=== PATIENT | male | born 1960 | race Caucasian/White ===

== ENCOUNTER 2021-10-17 12:05 | Day surgery (SDC) | payer OTHER ==
[2021-10-17] MEDS ORDERED: Sensorcaine 0.25% 10 ML IJ ONE (12:06)
[2021-10-17] MEDS ORDERED: DIPRIVAN 200 MG/20 ML IV ONE (14:17)
[2021-10-17] MEDS ORDERED: Lactated Ringers 1,000 ML IV ONE (15:00)
--- NOTE | 2021-10-17 15:01 | XRAY ---
Indication: Left C2-C4 MBB. Intraoperative fluoroscopy provided for 26 seconds. 4 digital spot images submitted for interpretation demonstrates posterior needle tips projecting over the expected left C2-C4 nerve roots. Correlate with intraoperative findings/report.
--- NOTE | 2021-10-17 16:42 | XRAY ---
26 seconds of fluoroscopy was used in surgery for a left C2-C4 MBB.
== END 2021-10-17 14:43 | disposition home or self-care (01) ==
LOC: SDC-PAIN 12:05
PROVIDERS: ATTEND Psychiatry & Neurology Pain Medicine
DX: M47.812 Spondylosis without myelopathy or radiculopathy, cervical region (principal); I10 Essential (primary) hypertension; Z79.899 Other long term (current) drug therapy
CPT/HCPCS: 64490; 64491; 72040; 77002; J2704

== ENCOUNTER 2021-11-21 10:59 | Day surgery (SDC) | payer OTHER ==
[2021-11-21] MEDS ORDERED: LIDOCAINE HCL 2% 100 MG/5 ML IJ ONE (11:00)
[2021-11-21] MEDS ORDERED: DIPRIVAN 200 MG/20 ML IV ONE (13:19)
[2021-11-21] MEDS ORDERED: Lactated Ringers 1,000 ML IV ONE (14:24)
--- NOTE | 2021-11-21 14:58 | XRAY ---
Indication: Right C2-C4 MBB. Intraoperative fluoroscopy provided for 29 seconds. Single lateral digital spot image submitted for interpretation demonstrates posterior needle tips projecting over the presumed right C2-C4 nerve roots. Correlate with intraoperative findings/report.
--- NOTE | 2021-11-21 16:25 | XRAY ---
29 seconds of fluoroscopy was used in surgery for a right C2-C4 MBB.
== END 2021-11-21 13:48 | disposition home or self-care (01) ==
LOC: SDC-PAIN 10:59
PROVIDERS: ATTEND Psychiatry & Neurology Pain Medicine
DX: M47.812 Spondylosis without myelopathy or radiculopathy, cervical region (principal); I10 Essential (primary) hypertension; Z79.899 Other long term (current) drug therapy
CPT/HCPCS: 64490; 64491; 72040; 77002; J2704

== ENCOUNTER 2022-09-19 06:07 | Day surgery (SDC) | payer OTHER ==
--- NOTE | 2022-09-18 12:54 | HP ---
DATE OF SURGERY: 09/19/2022 HISTORY OF PRESENT ILLNESS: The patient is a 61-year-old male who initially presented to the office with complaints of some left groin pain. The patient had a CT scan showing some narrowing and some thickening of the sigmoid colon. The patient had a colonoscopy about two years ago and some polyps. He presents for colonoscopy today. PAST MEDICAL HISTORY: Chronic obstructive pulmonary disease, hypertension, heartburn. PAST SURGICAL HISTORY: Cardiac catheterization. Nasal surgery. ALLERGIES: NONE REPORTED. MEDICATIONS: Aspirin, nebivolol. FAMILY HISTORY: None reported. SOCIAL HISTORY: Former smoker. Denies alcohol. REVIEW OF SYSTEMS: CONSTITUTIONAL: Denies fever or chills. CHEST: Denies shortness of breath. CVS: Denies chest pain. ABDOMEN: Reports left groin pain. PHYSICAL EXAMINATION: GENERAL: No acute distress. CHEST: Nonlabored. No shortness of breath. CVS: Regular rate and rhythm. ABDOMEN: Soft. No identified inguinal hernia on physical exam. IMPRESSION: Abnormal CT scan with sigmoid colon thickening, narrowing and history of colon polyps. PLAN: Colonoscopy with Dr. Guilherme Hanson. As dictated by Xiomara Ramos NP.
[2022-09-19] MEDS ORDERED: Lactated Ringers 1,000 ML IV ONE (06:58)
[2022-09-19] MEDS ORDERED: Lactated Ringers 1,000 ML IV SCH (07:00)
[2022-09-19] MEDS ORDERED: DIPRIVAN 200 MG/20 ML IV ONE (09:18)
[2022-09-19] MEDS ORDERED: Versed 2 MG/2 ML Injection ONE (09:18)
[2022-09-19 09:54] VITALS: O2SAT 94
[2022-09-19 10:02] VITALS: BP 111/74; PULSE 58
--- NOTE | 2022-09-19 10:53 | OP ---
SURGERY DATE/TIME: 09/19/2022 0921 PREOPERATIVE DIAGNOSIS: Thickened colon per CT scan of the sigmoid. POSTOPERATIVE DIAGNOSES: 1) The patient has severe external hemorrhoids. 2) The patient has moderate sigmoid diverticulosis with some narrowing and thickening. PROCEDURE: Colonoscopy complete to cecum. SURGEON: Guilherme Hanson M.D. ANESTHESIA: MAC. COMPLICATIONS: None. CONDITION: Stable. INDICATION: The patient had CT scan findings suggested colonoscopy. There is a thickened sigmoid colon. DESCRIPTION OF PROCEDURE: Taken to endoscopy. Left lateral decubitus position. Anal digital examination satisfactory. Prostate satisfactory. Scope introduced. Scope advanced to the cecum. Base of the cecum, ileocecal valve was normal. Ascending, hepatic, transverse, splenic, descending, sigmoid moderate diverticulosis with some spasm and very slight narrowing and angulation. No polyps noted. Rectum, anus moderate to severe external hemorrhoids. The patient tolerated the procedure satisfactory.
== END 2022-09-19 10:10 | disposition home or self-care (01) ==
LOC: SDC 06:07
PROVIDERS: ATTEND Surgery
DX: K57.30 Diverticulosis of large intestine without perforation or abscess without bleeding (principal); R93.3 Abnormal findings on diagnostic imaging of other parts of digestive tract; K64.4 Residual hemorrhoidal skin tags
CPT/HCPCS: J2250; J2704

== ENCOUNTER 2024-02-02 21:45 | Emergency (ER) | payer MEDICARE ==
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
[2024-02-02 22:07] VITALS: TEMP 98.1
[2024-02-02 22:11] LABS: BASOPHIL % 0.9 % (0.0-0.4); Basophil (Absolute #) 0.06 x10^3/uL (0-0.4); Eosinophil % 5.1 % (0.00-5.0); Eosinophil (Absolute #) 0.33 x10^3/uL (0-0.5); Hemoglobin 13.4 g/dL (12.5-18.0); IMMATURE GRAN # 0.01 x10^3u/L (0.00-0.03); IMMATURE GRAN % 0.2 % (0.00-0.4); Lymphocyte (Absolute #) 1.85 x10^3/uL (1.0-4.6); Lymphocytes % 28.4 % (24.0-44.0); Mean Cell Volume 93.2 fL (78-100); Mean Corpuscular Hemoglobin 31.2 pg (26-32); Mean Corpuscular Hgb Concent. 33.5 g/dL (32-36); Mean Platelet Volume 9.2 fL (7.5-11.0); Monocyte (Absolute #) 0.56 x10^3/uL (0.0-1.3); Monocytes % 8.6 % (0.0-12.0); Neutrophil % 56.8 % (36.0-66.0); Platelet Count 260 x10^3/uL (150-450); Red Blood Count 4.29 x10^6/uL (4.1-5.6); Red Cell Distribution Width 13.2 % (11.5-14.0); White Blood Count 6.5 x10^3/uL (4.0-10.5)
[2024-02-02 22:15] LABS: VBG BASE EXCESS 2.8 (-2.0-2.0); VBG CARBOXYHEMOGLOBIN 2.7 % T HGB (0.0-6.9); VBG HCO3- 29.4 meq/L (22-28); VBG HEMOGLOBIN 14.1; VBG O2 SATURATION 62.6 (95-100); VBG POTASSIUM 4.2 (3.5-5.1); VBG pH 7.36 (7.32-7.42)
[2024-02-02 22:24] LABS: INR 0.94 (0.8-3.0); PROTIME 10.3 SECONDS (9.4-12.5)
[2024-02-02 22:34] LABS: ALBUMIN 4.5 g/dL (3.5-5.0); ANION GAP 14.2 MEQ/L (5-15); BILIRUBIN,TOTAL 0.4 mg/dL (0.2-1.3); Calcium 9.8 mg/dL (8.4-10.2); Creatinine 1 1.03 mg/dL (0.66-1.25); EST GLOMERULAR FILTRATION RATE 80.6 ML/MIN; Potassium 4.1 mmol/L (3.5-5.1); Total Protein 8.3 g/dL (6.3-8.2)
[2024-02-02 22:46] LABS: INFLUENZA A NEGATIVE (NEGATIVE); INFLUENZA B NEGATIVE (NEGATIVE); RESPIRATORY SYNCTIAL VIRUS NEGATIVE (NEGATIVE); SARS-CoV-2 Xpert Express NEGATIVE (NEGATIVE)
[2024-02-02 23:25] VITALS: RESP 17
[2024-02-02] MEDS: BABY ASPIRIN 81 MG CHEW PO ONE (23:38)
[2024-02-03 00:32] VITALS: BP 177/108; PULSE 72; O2SAT 96
--- NOTE | 2024-02-03 09:03 | XRAY ---
Indication: Dyspnea. Comparison: May 14, 2016 Portable chest remains hyperinflated with incidental right mid lung calcified granuloma. New minimal left base subsegmental atelectasis/scarring. Heart and mediastinal structures within normal limits. Bony thorax intact again with osteopenia, mild degenerative changes, and old right rib fractures. Impression: Continued nonacute hyperinflated chest with chronic features.
== END 2024-02-03 00:56 | disposition short-term general hospital (02) ==
LOC: ED 21:45
DX: I24.9 Acute ischemic heart disease, unspecified (principal); R77.8 Other specified abnormalities of plasma proteins; R06.09 Other forms of dyspnea; I10 Essential (primary) hypertension; Z79.899 Other long term (current) drug therapy
CPT/HCPCS: 0241U; 36000; 36415; 71045; 80053; 82805; 83605; 83735; 83880; 84484; 85025; 85610; 93005; 93041; 99284; 99291; A9270-GY